=== PATIENT | female | born 1990 | race Caucasian/White ===

== ENCOUNTER → 2017-05-27 08:14 | Outpatient (CLI) | payer MEDICAID ==
[~2017-05-27 08:14] MED LIST: PRENATAL COMPLE1 TAB PO; TYLENOL 325 MG325 MG PO; TYLENOL PM1 TAB PO
== END | disposition home or self-care (01) ==
LOC: D.US 08:14
DX: N63 Unspecified lump in breast (principal)

== ENCOUNTER 2018-07-28 09:35 | Day surgery (SDC) | payer MEDICAID ==
[2018-07-27 14:21] LABS: HEMATOCRIT 41.5 % (36.0-48.0); HEMOGLOBIN 14.4 g/dL (12-16); MCH 30.8 pg (26.0-34.0); MCHC 34.7 g/dL (31.0-37.0); MCV 88.7 fL (80.0-100.0); MEAN PLATELET VOLUME 10.6 fL (7.4-10.4); RBC 4.68 10x6/uL (4.00-5.40); RDW 14.3 % (11.5-14.5); WBC 7.7 10x3/uL (4.8-10.8)
[~2018-07-28] VITALS: Ht 157.5 cm; Wt 46.7 kg
--- NOTE | ~2018-07-28 | OP ---
PATIENT NAME: NADER MEDINA MEDICAL RECORD: [id number] :88 [facility] DATE: SURGEON: RASHI BARRETO DATE OF OPERATION: 07/28/2018 SURGEON: Rashi Barreto DPM PREOPERATIVE DIAGNOSIS: Hallux abductovalgus deformity, right foot. POSTOPERATIVE DIAGNOSIS: Hallux abductovalgus deformity, right foot. PROCEDURE: Lapidus arthrodesis, right foot. ANESTHESIA: General. HEMOSTASIS: Pneumatic ankle tourniquet inflated to 250 mmHg for 72 minutes. ESTIMATED BLOOD LOSS: Minimal. MATERIALS: One [employer] Lapidus plate. INJECTABLES: 20 cc of 0.5% bupivacaine plain. The patient has longstanding history of pain associated with a bunion deformity. She is here today for correction of that deformity. We have reviewed the risks and benefits of the procedure. Complications were discussed. All questions were answered. She was appropriately consented for the above-mentioned procedure. DESCRIPTION OF PROCEDURE: The patient was brought into the operating room and placed on the operating table in supine position. A timeout was called with Dr. Barreto, who identified the patient, the surgical site, and the surgery to be performed. Once appropriate anesthesia was obtained, the foot was prepped and draped in the usual aseptic manner. The pneumatic ankle tourniquet was inflated to 250 mmHg on the well-padded right ankle. Attention was directed to the dorsal aspect of the first ray where an incision was made extending from the navicular cuneiform joint to the first metatarsophalangeal joint. This incision was carried deep through soft tissue with care being taken to retract all vital neurovascular structures. All bleeders were cauterized along the way. Through this incision, the first intermetatarsal space was entered utilizing both sharp and blunt dissection. The conjoined tendon of the adductor hallucis muscle was identified and sharply transected at the base of the proximal phalanx. Attention was then directed further proximally and the fibular sesamoidal ligament was identified and sharply transected. Attention was then redirected to the head of the first metatarsal where the periosteum was reflected from the first metatarsal, thus revealing the hypertrophied medial eminence as well as the first metatarsal medial cuneiform joint. Utilizing a sagittal saw, the hypertrophied medial eminence was resected. Attention was then directed to the first metatarsal medial cuneiform joint. Utilizing the sagittal saw, the base of the first metatarsal was resected. Next, utilizing the sagittal saw, a wedge-shaped section of bone was removed from the distal portion of the medial cuneiform. OPERATIVE REPORT [id number] NADER MEDINA The arthrodesis site was then reduced and fixation was obtained with a K-wire. The first metatarsal was then noted to be in appropriate position. Next, utilizing the manufacture's recommended technique, one 5-hole [facility] Lapidus plate was placed over the arthrodesis site. Excellent compression was noted with utilization of the screws. The surgical site was then irrigated with copious amounts of normal sterile saline via bulb syringe. The periosteum was then reapproximated and coapted utilizing 3-0 Vicryl. The subq was then reapproximated and coapted utilizing 4-0 Vicryl. The skin was then reapproximated and coapted utilizing 4-0 nylon. A dressing consisting of Xeroform, 4 x 4's, Kerlix, and Coban was applied to the right foot. The pneumatic ankle tourniquet was deflated and capillary refill time was immediate to the involved digit. After resection of the base of the first metatarsal and the distal aspect of the medial cuneiform, the joint surfaces were prepared with subchondral drilling utilizing a 2.0 drill. The patient tolerated the procedure and anesthesia well. She left the operating room with vital signs stable and capillary refill time intact. The patient will be discharged home with instructions to ice and elevate the foot. She has crutches to help offload the foot. She is to be nonweightbearing. This was discussed preoperatively. She was provided with my cell phone number for any after hour difficulties. She was provided with a prescription for Percocet 7.5/325, #30 one tab p.o. q.4-6 hours p.r.n. pain and there were no complications with this procedure. TRANSINT:[id number] Voice Confirmation ID: [id number] DOCUMENT ID: [id number] RASHI BARRETO at 1752 CC: [id number] DICTATION DATE: 07/28/18 1440 CLIENT SERVICES ASSOCIATE: 07/28/18 1512 DEP SDC 07/28/18 [facility] [address] [place] [address]
[~2018-07-28 09:35] MED LIST changes: +GABAPENTIN100 MG PO
[2018-07-28 11:32] VITALS: BP 121/69; Ht 157.5 cm; Wt 46.7 kg
== END 2018-07-28 16:30 | disposition home or self-care (01) ==
LOC: D.OPS 09:35 → D.PAN 11:30 → D.OPS 11:30
PROVIDERS: Anesthesiology
DX: M20.11 Hallux valgus (acquired), right foot (principal); Z01.812 Encounter for preprocedural laboratory examination